=== PATIENT | female | born 1985 | race Caucasian/White ===

== ENCOUNTER 2016-11-20 15:04 | Outpatient (CLI) | payer OTHER ==
--- NOTE | 2016-11-21 08:08 | DIAGNOSTIC IMAGING REPORT ---
PROCEDURE: MR LOW EXT NONJOINT WO CON-LT INDICATION: PAIN AND SWELLING MID FOOT TECHNIQUE: Sagittal, axial, coronal, and axial oblique T1 and STIR sequences obtained through the foot. COMPARISON: None. FINDINGS: Osseous structures and articular surfaces: There is an extremely subtle amount of increased marrow edema seen in the proximal second metatarsal diaphysis. No corresponding low T1 signal or fracture plane visible. No abnormal cortical thickening. Bony alignment appears grossly normal. Marrow signal is otherwise normal. Ligaments: The dorsal and intraosseous bands of the Lisfranc ligament are well seen and appear intact the plantar band is less convincingly identified. Bands of the spring ligament appear intact. Anterior and medial bands of the deltoid ligament are not well seen. Posterior band is intact. Laterally, the ATFL, CFL , and PTFL are intact. Tendons: The distal most aspect of the posterior tibial tendon appears expanded/thickened with intrinsic intermediate signal and some fragmentation of the fibers. Proximally, the extensor tendons appear normal. No obvious tenosynovitis. The lateral and Achilles tendons are normal. Soft tissues, musculature, and fluid: There is moderate edema over the dorsum of the foot from the distal tarsal row over the metatarsals, mainly two through five. Intrinsic and plantar musculature appears normal in bulk and signal. No atrophy or edema to suggest denervation. The bands of the plantar fascia are normal. No joint effusion. IMPRESSION: 1. Subtle marrow edema involving the proximal aspect of the second metatarsal most suggestive of an early stress fracture. 2. Lisfranc ligament as a can be visualized is intact. No interdigitating fluid is seen. 3. Chronic-appearing anterior and medial band deltoid ligament tears. 4. Chronic-appearing tendinopathy or postsurgical changes of the distal aspect of the posterior tibial tendon without tenosynovitis or acute inflammation. 5. Dorsal edema over the second through fifth metatarsals, nonspecific.
== END 2016-11-20 23:00 ==
LOC: MRI SRH 15:04
DX: S93.326A Dislocation of tarsometatarsal joint of unspecified foot, initial encounter (principal); R60.9 Edema, unspecified

== ENCOUNTER 2017-02-03 12:14 | Outpatient (CLI) | payer OTHER ==
--- NOTE | 2017-02-03 12:34 | DIAGNOSTIC IMAGING REPORT ---
PROCEDURE: XR WRIST MIN 3 VIEWS - RIGHT INDICATION: WRIST PAIN,RIGHT TECHNIQUE: Three views of the right wrist. COMPARISON: None. FINDINGS: Normal mineralization. No fractures. Normal osseous alignment. No suspicious soft-tissue calcification or radiodense foreign bodies. IMPRESSION: 1. Intact right wrist.
== END 2017-02-03 23:00 ==
LOC: XR SRH 12:14
DX: M25.531 Pain in right wrist (principal)